=== PATIENT | female | born 1950 | race Caucasian/White ===

== ENCOUNTER → 2017-10-20 | Outpatient (CLI) | payer MEDICARE | END | disposition home or self-care (01) | LOC: RAH 10:31 | PROVIDERS: ATTEND Family Medicine | DX: Z12.31 Encounter for screening mammogram for malignant neoplasm of breast (principal) | CPT/HCPCS: 77067 ==

== ENCOUNTER → 2018-10-21 | Outpatient (CLI) | payer MEDICARE | END | disposition home or self-care (01) | LOC: RAH 08:42 | PROVIDERS: ATTEND Family Medicine | DX: Z12.31 Encounter for screening mammogram for malignant neoplasm of breast (principal) | CPT/HCPCS: 77067 ==

== ENCOUNTER → 2020-11-15 | Outpatient (CLI) | payer MEDICARE | END | disposition home or self-care (01) | LOC: RAH 09:27 | PROVIDERS: ATTEND Family Medicine | DX: Z12.31 Encounter for screening mammogram for malignant neoplasm of breast (principal) | CPT/HCPCS: 77067 ==

== ENCOUNTER → 2023-04-22 | Outpatient (CLI) | payer MEDICARE | END | disposition home or self-care (01) | LOC: RAH 09:12 | PROVIDERS: ATTEND Family Medicine | DX: Z12.31 Encounter for screening mammogram for malignant neoplasm of breast (principal); R92.0 Mammographic microcalcification found on diagnostic imaging of breast | CPT/HCPCS: 77067 ==